=== PATIENT | female | born 1960 | race Caucasian/White ===

== ENCOUNTER 2025-02-08 15:10 | Inpatient (IN) | payer MEDICAID ==
[2025-02-08] MEDS: Dexamethasone 4 MG/ML SDV IVPUSH ONE (16:01)
[2025-02-08 16:02] LABS: PLATELET COUNT,PLT 203 10^3/uL (150-450); RED BLOOD CELL COUNT 4.29 10^6/uL (4.2-5.4); WHITE BLOOD CELL COUNT,WBC 29.3 10^3/uL (5.0-10.0)
[2025-02-08] MEDS: Lactated Ringers 1,000 ML IV SCH (16:06)
[2025-02-08 16:07] LABS: BASOPHILS PERCENT AUTO 0.2 % (0.0-1.0); EOSINOPHILS PERCENT AUTO 1.4 % (1.0-3.0); LYMPHOCYTES PERCENT AUTO 10.2 % (20.5-50.1); MONOCYTES PERCENT AUTO 1.5 % (2-8); NEUTROPHILS PERCENT AUTO 86.7 % (42.2-75.2)
[2025-02-08 16:17] LABS: EOSINOPHILS PERCENT MAN 1 % (1-3); LYMPHOCYTES PERCENT MAN 9 % (20-50); MONOCYTES PERCENT MAN 3 % (2-8); SEG NEUTROPHILS PERCENT MAN 87 % (42-75)
[2025-02-08] MEDS ORDERED: Lactated Ringers 1,000 ML IV SCH (17:30)
[2025-02-08 17:31] LABS: ALANINE AMINOTRANSFERASE,ALT 34.0 U/L (14-59); ASPARTATE AMNIOTRANSFERASE,AST 27.0 U/L (15-37); BILIRUBIN TOTAL 0.7 mg/dL (0.2-1.0); BLOOD UREA NITROGEN,BUN 10.0 mg/dL (7-18); CARBON DIOXIDE,CO2 24.0 mmol/L (21-32); CHLORIDE,CL 107.0 mmol/L (98-107); CREATININE 0.6 mg/dL (0.55-1.02); EST CRCL DRUG DOSING (CG) 71.48 mL/min; GLUCOSE RANDOM 89.0 mg/dL (70-99); POTASSIUM,K 3.0 mmol/L (3.5-5.1); PROTEIN TOTAL,TP 6.6 g/dL (6.4-8.2); SODIUM,NA 141.0 mmol/L (136-145)
[2025-02-08 17:32] LABS: A/G RATIO 1.0; ESTIMATED GFR 100.0 mL/min (>=60)
[2025-02-08 17:35] LABS: LACTIC ACID 1.1 mmol/L (0.4-2.0)
[2025-02-08 17:46] LABS: O2 DELIVERY DEVICE ROOM AIR
[2025-02-08 17:56] LABS: BASE EXCESS VENOUS -1 mmol/L ((-2)-(+3)); BICARBONATE,VENOUS 24 mmol/L (22-29); O2 SATURATION VENOUS 73 % (60-80); PCO2 VENOUS 35 mmHg (41-51); PH,VENOUS 7.44 pH (7.32-7.43); PO2 VENOUS 37 mmHg (35-42)
[2025-02-08] MEDS ORDERED: Metoprolol Tartrate 5 MG/5 ML SDV IVPUSH PRN (21:07)
[2025-02-08] MEDS ORDERED: Magnesium Hydroxide 400 MG/5 ML Susp 30 ML Cup PO PRN (21:10)
[2025-02-08] MEDS ORDERED: Budesonide 0.5 MG/2 ML Neb Susp NEB PRN (21:13)
[2025-02-08] MEDS ORDERED: Ipratropium 0.02% 0.5 MG/2.5 ML Neb Soln NEB PRN (21:14)
[2025-02-08] MEDS ORDERED: Pharmacy Consult Order SCH (21:30)
[2025-02-08] MEDS: Scopalamine 1mg/3day Transdermal Patch TOP ONE (22:07)
[2025-02-08 22:41] LABS: APPEARANCE,URINE CLEAR (CLEAR); GLUCOSE,URINE NEGATIVE (NEGATIVE); OCCULT BLOOD,URINE TRACE-LYSED (NEGATIVE)
[2025-02-08 22:56] LABS: EPITHELIAL CELLS,URINE RARE /HPF (NOT SEEN)
[2025-02-08] MEDS: Ampicillin/Sulbactam Na 1.5 GM in Sodium Chloride 0.9% 100 ML IV SCH (23:51)
[2025-02-09] MEDS: Folic Acid 50 MG/10 ML MDV ONE (01:02)
[2025-02-09] MEDS: MVI, Adult with Vitamin K 10 ML, Folic Acid 1 MG, Thiamine 100 MG in Lactated Ringers 1... IV ONE (01:10)
[2025-02-09] MEDS: Potassium Chloride 20 MEQ in Premix Bag 1 BAG IV SCH (01:15)
[2025-02-09 06:24] LABS: BASOPHILS PERCENT AUTO 0.2 % (0.0-1.0); EOSINOPHILS PERCENT AUTO 0.1 % (1.0-3.0); LYMPHOCYTES PERCENT AUTO 7.8 % (20.5-50.1); MONOCYTES PERCENT AUTO 0.3 % (2-8); NEUTROPHILS PERCENT AUTO 91.6 % (42.2-75.2); PLATELET COUNT,PLT 174 10^3/uL (150-450); RED BLOOD CELL COUNT 4.17 10^6/uL (4.2-5.4); WHITE BLOOD CELL COUNT,WBC 21.7 10^3/uL (5.0-10.0)
[2025-02-09] MEDS: hydrALAZINE 20 MG/ML SDV IVPUSH PRN (06:34)
[2025-02-09 06:45] LABS: ALANINE AMINOTRANSFERASE,ALT 33.0 U/L (14-59); ASPARTATE AMNIOTRANSFERASE,AST 18.0 U/L (15-37); BILIRUBIN TOTAL 0.7 mg/dL (0.2-1.0); BLOOD UREA NITROGEN,BUN 8.0 mg/dL (7-18); CARBON DIOXIDE,CO2 28.0 mmol/L (21-32); CHLORIDE,CL 109.0 mmol/L (98-107); CREATININE 0.5 mg/dL (0.55-1.02); EST CRCL DRUG DOSING (CG) 85.77 mL/min; GLUCOSE RANDOM 91.0 mg/dL (70-99); POTASSIUM,K 4.2 mmol/L (3.5-5.1); PROTEIN TOTAL,TP 6.2 g/dL (6.4-8.2); SODIUM,NA 143.0 mmol/L (136-145)
[2025-02-09 06:49] LABS: A/G RATIO 0.94; ESTIMATED GFR 105.0 mL/min (>=60)
[2025-02-09] MEDS ORDERED: NALOXEGOL OXALATE 25 MG PO SCH (09:00)
[2025-02-09] MEDS ORDERED: Non-Formulary Medication 1 Each (Buspirone [Buspar] 10 MG Tablet) PO SCH (09:00)
[2025-02-09] MEDS: NIFEdipine 30 MG Tab.ER PO SCH (09:36)
[2025-02-09] MEDS: Saccharomyces Boulardii (Probiotic) 250 MG Cap PO SCH (09:36)
[2025-02-09] MEDS: GI Cocktail Oral Solution 30 ML PO ONE (11:01)
[2025-02-09] MEDS: Magnesium Sulfate 2 GM/50 mL 2 GM in Premix Bag 1 BAG IV ONE (11:03)
[2025-02-09] MEDS ORDERED: Non-Formulary Medication 1 Each (Prazosin [Minpress] 1 MG Cap) PO SCH (21:00)
[2025-02-10 06:29] LABS: EOSINOPHILS PERCENT AUTO 0.0 % (1.0-3.0); LYMPHOCYTES PERCENT AUTO 13.5 % (20.5-50.1); MONOCYTES PERCENT AUTO 2.3 % (2-8); NEUTROPHILS PERCENT AUTO 84.0 % (42.2-75.2); PLATELET COUNT,PLT 151 10^3/uL (150-450); RED BLOOD CELL COUNT 4.27 10^6/uL (4.2-5.4); WHITE BLOOD CELL COUNT,WBC 9.0 10^3/uL (5.0-10.0)
[2025-02-10 06:47] LABS: BASOPHILS PERCENT AUTO 0.2 % (0.0-1.0)
[2025-02-10 06:54] LABS: ALANINE AMINOTRANSFERASE,ALT 38.0 U/L (14-59); ASPARTATE AMNIOTRANSFERASE,AST 20.0 U/L (15-37); BILIRUBIN TOTAL 0.7 mg/dL (0.2-1.0); BLOOD UREA NITROGEN,BUN 10.0 mg/dL (7-18); CARBON DIOXIDE,CO2 26.0 mmol/L (21-32); CHLORIDE,CL 108.0 mmol/L (98-107); CREATININE 0.6 mg/dL (0.55-1.02); EST CRCL DRUG DOSING (CG) 71.48 mL/min; GLUCOSE RANDOM 117.0 mg/dL (70-99); POTASSIUM,K 4.6 mmol/L (3.5-5.1); PROTEIN TOTAL,TP 6.7 g/dL (6.4-8.2); SODIUM,NA 143.0 mmol/L (136-145)
[2025-02-10 07:29] LABS: A/G RATIO 0.91; ESTIMATED GFR 100.0 mL/min (>=60)
[2025-02-10 16:56] VITALS: BP 127/67; PULSE 87
[2025-02-10] MEDS: Dexamethasone 4 MG/ML SDV IVPUSH ONE (19:28)
== END 2025-02-10 19:45 | disposition home or self-care (01) | DRG 872 ==
LOC: DL.ED 15:10 → DL.MS 19:22
PROVIDERS: ADMIT Internal Medicine; ATTEND Internal Medicine
DX: A41.9 Sepsis, unspecified organism (principal); J44.0 Chronic obstructive pulmonary disease with (acute) lower respiratory infection; C34.90 Malignant neoplasm of unspecified part of unspecified bronchus or lung; J20.9 Acute bronchitis, unspecified; I10 Essential (primary) hypertension; E86.0 Dehydration; E87.6 Hypokalemia; E88.09 Other disorders of plasma-protein metabolism, not elsewhere classified; K21.9 Gastro-esophageal reflux disease without esophagitis; E83.42 Hypomagnesemia; Z79.899 Other long term (current) drug therapy; Z98.890 Other specified postprocedural states; Z88.8 Allergy status to other drugs, medicaments and biological substances; Z90.710 Acquired absence of both cervix and uterus; Z88.2 Allergy status to sulfonamides; Z79.82 Long term (current) use of aspirin; Z87.891 Personal history of nicotine dependence
CPT/HCPCS: 36415; 71045; 80053; 80202; 81001; 82803; 83605; 83735; 85025; 86140; 87040; 87070; 87205; 96361; 96365; 96366; 96368; 96375; 99285; 99285-25; A9270-GY; J0295; J0360; J1100; J1171; J1650; J2470; J2543; J3373; J3411; J3475; J3480; J3490; J7050; J7120; J8540